=== PATIENT | female | born 2000 | race Caucasian/White ===

== ENCOUNTER 2019-05-31 08:45 | Outpatient (CLI) | payer BC ==
--- NOTE | 2019-05-31 09:51 | ULT ---
PELVIC ULTRASOUND INCLUDING TRANSABDOMINAL AND TRANSVAGINAL AND VASCULAR DUPLEX WITH COLOR AND SPECTR AL DOPPLER IMAGING: Date: 05/31/2019 HISTORY: Pelvic pain, right greater than left. FINDINGS: Uterus measures 7.2 x 3.2 x 4.2 cm. Endometrium 0.3 cm. Right ovary 2.5 x 1.7 x 1.8 cm. Left ovary 2.4 x 1.2 x 1.[address]. No abscess or abnormal fluid collection. Vascular flow documented to both ovaries. IMPRESSION: Unremarkable pelvic ultrasound. IUD in place. POS: [facility]
== END 2019-05-31 08:46 | disposition home or self-care (01) ==
LOC: BICULT 08:45
PROVIDERS: ATTEND Nurse Practitioner Women's Health
DX: R10.2 Pelvic and perineal pain (principal); Z97.5 Presence of (intrauterine) contraceptive device
CPT/HCPCS: 76856